=== PATIENT | male | born 1960 | race Caucasian/White ===

== ENCOUNTER → 2018-11-01 10:03 | Outpatient (CLI) | payer OTHER, SELFPAY ==
--- NOTE | 2018-11-01 | DI.RAD.S_ITS ---
PROCEDURE: FL BARIUM SWALLOW INDICATIONS: Diaphragmatic hernia without obstruction COMPARISON: [facility], , UPPER GI, 01/19/2017, 10:23. FINDINGS: Function: There is normal esophageal peristalsis. Moderate gastroesophageal reflux is noted. There is normal transit of a calibrated barium tablet through the esophagus into the stomach. Morphology: Air-contrast images demonstrate normal mucosal morphology. Sliding hiatal hernia is again seen, unchanged from previous study. Single contrast views show no esophageal strictures, extrinsic mass effects, or diverticula. Limited images of the stomach demonstrate normal appearance. IMPRESSION: Moderate-sized sliding hiatal hernia and moderate spontaneous atelectatic gastroesophageal reflux, unchanged from previous study. No esophageal stricture or erosion. Dictated by: Glen Adamson M.D. on 11/01/2018 at 11:54 Approved by: Glen Adamson M.D. on 11/01/2018 at 11:56
== END ==
PROVIDERS: PCP Physician Assistant Medical; Visit Provider Family Medicine
DX: K44.9 Diaphragmatic hernia without obstruction or gangrene (principal); K21.9 Gastro-esophageal reflux disease without esophagitis
CPT/HCPCS: 74220

== ENCOUNTER → 2020-05-21 10:34 | Outpatient (CLI) | payer BC, OTHER, SELFPAY ==
--- NOTE | 2020-05-21 | DI.US.S_ITS ---
PROCEDURE: US SCROTUM INDICATIONS: GERD, TESTICULAR PAIN TECHNIQUE: Real-time scanning was performed of the scrotum and testicles, with image documentation. Color and pulse Doppler interrogation was performed of both testicles. COMPARISON: None. FINDINGS: Right: Testicle is normal in size at 3.1 x 2.2 x 3.7 cm, and homogenous in echotexture. Left epididymal head cyst measuring 4 mm. No hydrocele or varicoceles. Overlying scrotal skin is normal in thickness. Left: Testicle is normal in size at 1.9 x 1.4 x 3.1 cm, and homogeneous in echotexture. Left epididymal head cyst measuring 8 mm. No hydrocele or varicoceles. Overlying scrotal skin is normal in thickness. Doppler: Color and pulse Doppler demonstrate normal and symmetric arterial flow in both testicles. IMPRESSION: Mildly hypoplastic left testicle, reportedly congenital per the patient. No acute finding. Dictated by: Jero Jewell M.D. on 05/21/2020 at 13:39 Approved by: Jero Jewell M.D. on 05/21/2020 at 13:41
== END ==
PROVIDERS: PCP Physician Assistant Medical; Referring Provider Physician Assistant Medical; Visit Provider Physician Assistant Medical
DX: N50.812 Left testicular pain (principal); K21.9 Gastro-esophageal reflux disease without esophagitis; Q55.1 Hypoplasia of testis and scrotum
CPT/HCPCS: 76870

== ENCOUNTER → 2020-06-17 09:59 | Outpatient (CLI) | payer BC, OTHER, SELFPAY ==
--- NOTE | 2020-06-17 16:28 | SLP.IPNOTE ---
Administrative note: patient showed up for his appointment, but upon discussion realized the wrong procedure was ordered. Patient has long history of Gi issues and gets routine barium swallow studies. MBSS canceled and NUCLEAR TEST TECHNICIAN l/m for ordering MD letting her know the wrong procedure was ordered.
== END ==
PROVIDERS: PCP Physician Assistant Medical; Referring Provider Physician Assistant Medical; Visit Provider Physician Assistant Medical
DX: K21.9 Gastro-esophageal reflux disease without esophagitis (principal); Z53.9 Procedure and treatment not carried out, unspecified reason

== ENCOUNTER → 2020-06-30 09:59 | Outpatient (CLI) | payer BC, OTHER, SELFPAY ==
--- NOTE | 2020-06-30 | DI.RAD.S_ITS ---
PROCEDURE: FL BARIUM SWALLOW W AIR COMPARISON: [facility], , [place] BARIUM SWALLOW, 11/01/2018, 10:17. INDICATIONS: Gastro-esophageal reflux disease FINDINGS: Moderate hiatal hernia appears grossly unchanged in size and appearance (probably sliding) since 11/01/18. There is esophageal dysmotility and prolonged esophageal clearance. No evidence of stricture or erosion is seen. Air-contrast images demonstrate normal mucosal morphology. IMPRESSION: Marked esophageal dysmotility and prolonged esophageal clearance. Redemonstrated moderate hiatal hernia as before. No change in size or appearance since 11/01/18 Dictated by: Jefferson Lora M.D. on 06/30/2020 at 11:02 Approved by: Jefferson Lora M.D. on 06/30/2020 at 11:08
== END ==
PROVIDERS: PCP Physician Assistant Medical; Referring Provider Physician Assistant Medical; Visit Provider Physician Assistant Medical
DX: K21.9 Gastro-esophageal reflux disease without esophagitis (principal); K22.4 Dyskinesia of esophagus; K44.9 Diaphragmatic hernia without obstruction or gangrene
CPT/HCPCS: 74220